=== PATIENT | female | born 1940 | race Caucasian/White ===

== ENCOUNTER 2017-02-15 12:28 | Emergency (ER) | payer OTHER, MEDICARE ==
[~2017-02-15] VITALS: Ht 165.1 cm; Wt 79.4 kg
--- NOTE | 2017-02-15 13:03 | ED GI/GU/ABDOMINAL COMPLAINT ---
History of Present Illness General Chief Complaint: General Adult Stated Complaint: ABD PAIN /RASH ALL OVER BODY Source: patient, family Exam Limitations: no limitations Vital Signs & Intake/Output Vital Signs & Intake/Output Vital Signs Date Time Temp Pulse Resp B/P B/P Pulse O2 O2 Flow FiO2 Mean Ox Delivery Rate 02/15 1542 98.0 82 20 139/67 95 Room Air Room Air 02/15 1410 98.0 76 20 145/67 98 Room Air 02/15 1234 98.2 91 22 153/75 96 Room Air Room Air ED Intake and Output 02/16 0000 02/15 1200 Intake Total 1000 Output Total Balance 1000 Intake, IV 1000 Patient 175 lb Weight Weight Reported by Patient Measurement Method Allergies Coded Allergies: Penicillins (Intermediate, RASH 02/15/17) Reconcile Medications Prednisone 10 MG TABLET 1 TAB PO D RASH TAKE 4 TABS FOR 3 DAYS TAKE 3 TABS FOR 3 DAYS TAKE 2 TABS FOR 3 DAYS TAKE 1 TAB FOR 3 DAYS Triage Note: TRIAGE: 76 Y/O FEMALE PRESENTS C/O 7/10 LEFT SIDED RIB PAIN X DAYS. REPORTS PAIN WORSENING WITH BREATHING. ALSO C/O RASH OVER BODY X 3-4 DAYS. "I KEEP GLOBBING THE CORTIZONE 10 CREAM ON IT AND THEN IT JUST KEEPS MOVING TO SOMEWHERE ELSE ON MY BODY." HAS TAKEN PREDNISONE SINCE FRIDAY MORNING WHEN SHE WOKE UP AND HE RIGHT EYE WAS COMPLETELY SWOLLEN SHUT... * REQUESTING A NEW PCP REFERRAL - REPORTS HER PCP RETIRED YESTERDAY.. Triage Nurses Notes Reviewed? yes ? N Is pt currently ? No HPI: Ck is a 76-year-old female who arrived through triaged to room for evaluation of left lower quadrant abdominal pain that started 4 days ago. She reports she has no nausea, vomiting, diarrhea. She last ate this morning with no issues. Last bowel movement was this morning, normal, brown, soft with no blood. 2 days ago she started with a rash on her arms that is spreading. She denies any new medications, new detergents, new contacts to different agents. Pain in her left lower quadrant at this time is mild. She also has pain in her epigastric area that started previously to her left lower quadrant abdominal pain. (RC MOREAU APRN) Past History Travel History Traveled to [place] past 21 day No Medical History Any Pertinent Medical History? see below for history Neurological: NONE EENT: NONE Cardiovascular: hypertension, hyperlipidemia Respiratory: NONE Gastrointestinal: NONE Hepatic: NONE Renal: NONE Musculoskeletal: NONE Psychiatric: NONE Endocrine: NONE Blood Disorders: NONE Cancer(s): NONE DRAWER MAKER/Reproductive: NONE Surgical History Surgical History: cholecystectomy Psychosocial History What is your primary language Ethiopian Tobacco Use: Current Daily Use Daily Tobacco Use Amount/Type: => 5 Cigarettes daily ETOH Use: denies use Illicit Drug Use: denies illicit drug use Family History Hx Contributory? No (RC MOREAU APRN) Review of Systems Review of Systems Constitutional: Reports: no symptoms. EENTM: Reports: no symptoms. Respiratory: Reports: no symptoms. Cardiovascular: Reports: no symptoms. GI: Reports: abdominal pain. Genitourinary: Reports: no symptoms. Musculoskeletal: Reports: no symptoms. Skin: Reports: rash. Neurological/Psychological: Reports: no symptoms. Hematologic/Endocrine: Reports: no symptoms. Immunologic/Allergic: Reports: no symptoms. All Other Systems: Reviewed and Negative (RC MOREAU APRN) Physical Exam Physical Exam General Appearance: well developed/nourished, no apparent distress, alert, awake , comfortable Head: atraumatic, normal appearance Eyes: Bilateral: normal appearance, PERRL, EOMI. Ears, Nose, Throat, Mouth: hearing grossly normal, moist mucous membrane Neck: normal inspection, supple, full range of motion, normal alignment Respiratory: normal breath sounds, chest non-tender, no respiratory distress Cardiovascular: regular rate/rhythm Peripheral Pulses: 2+ radial (R), 2+ radial (L) Gastrointestinal: normal bowel sounds (EPIGASTRIC OVER INCISION), soft, tenderness (LLQ), hernia (INCISIONAL) Back: normal inspection, normal range of motion Extremities: normal range of motion Neurologic/Psych: no motor/sensory deficits, awake, alert, oriented x 3, normal gait, normal mood/affect Skin: intact (BILATERAL ARMS ONLY), normal color, warm/dry, rash Core Measures ACS in differential dx? No Severe Sepsis Present: No Septic Shock Present: No (RC MOREAU APRN) Progress Differential Diagnosis: diverticulitis, hernia, UTI/pyelo, CONTACT DERMATITIS, NONSPECIFIC RASH Plan of Care: Orders Procedure Date/time Status URINALYSIS 02/15 1312 Complete Saline Lock 02/15 1305 Active LIPASE 02/15 1305 Complete COMPREHENSIVE METABOLIC PANEL 02/15 1305 Complete CBC WITHOUT DIFFERENTIAL 02/15 1305 Complete AMYLASE 02/15 130 Complete Laboratory Tests 02/15/17 1317: Urine Color YEL, Urine Clarity CLEAR, Urine pH 7.5, Ur Specific [place] 1.015, Urine Protein NEG, Urine Ketones NEG, Urine Nitrite NEG, Urine Bilirubin NEG, Urine Urobilinogen 0.2, Ur Leukocyte Esterase NEG, Ur Microscopic EXAM NOT REQUIRED, Urine Hemoglobin NEG, Urine Glucose NEG 02/15/17 1310: Anion Gap 12, Estimated GFR > 60, BUN/Creatinine Ratio 26.7 H, Glucose 125 H, Calcium 10.0, Total Bilirubin 1.0, AST 18, ALT 20, Alkaline Phosphatase 71, Total Protein 6.7, Albumin 3.6, Globulin 3.1, Albumin/Globulin Ratio 1.2, Amylase 58, Lipase 75, CBC w Diff NO MAN DIFF REQ, RBC 4.85, MCV 90.9, MCH 30.6, RDW 13.1, MPV 9.3, Gran % 63.8, Lymphocytes % 26.2, Monocytes % 7.0, Eosinophils % 2.6, Basophils % 0.4, Absolute Granulocytes 9.7 H, Absolute Lymphocytes 4.0 H, Absolute Monocytes 1.1 H, Absolute Eosinophils 0.4, Absolute Basophils 0.1, PUBS MCHC 33.6 Diagnostic Imaging: Viewed by Me: CT Scan. Discussed w/RAD: CT Scan. Initial ED EKG: none Comments: PATIENT: CK ESPINAL PRESENT AGE: 76 PATIENT ACCOUNT NO: [id number] : 39 LOCATION: [facility] ORDERING PHYSICIAN: RC MOREAU APRN SERVICE DATE: 02/15/17 EXAM TYPE: CAT - CT ABD & PELVIS W IV CONTRAST EXAMINATION: CT ABDOMEN AND PELVIS WITH CONTRAST CLINICAL INFORMATION: Diverticulitis. Abdominal pain. COMPARISON: None TECHNIQUE: Multidetector volumetric imaging was performed of the abdomen and pelvis before and after the IV administration of 95 mL of Optiray 320 intravenous contrast. Sagittal and coronal reformatted images were obtained on the technologist's workstation. DLP: 453 mGy-cm FINDINGS: LUNG BASES: There is minimal bilateral posterior pleural thickening and bilateral lower lobe atelectasis and/or scarring. The heart size is normal. LIVER, GALLBLADDER, AND BILIARY TREE: The liver is enlarged measuring 17 cm in length. There is diffuse attenuation of liver from focal fatty infiltration. No focal mass or intrahepatic ductal dilatation seen. The gallbladder is not visualized. PANCREAS: Unremarkable. SPLEEN: There is decreased perfusion of anterior inferior spleen probably flow-related previous infarction. Rest of the spleen is unremarkable. ADRENAL GLANDS: Unremarkable. KIDNEYS AND URETERS: The kidneys are normal in size, shape, and attenuation. No hydronephrosis, hydroureter, or calculi seen. No perinephric stranding. There are several cortical-based bilateral renal cyst, the largest measuring 2.7 cm in upper pole right kidney. There is mild bilateral perinephric stranding suggestive of reactive airway disease. BLADDER: Unremarkable. GASTROINTESTINAL TRACT: There is scattered stool in the right colon without distention. Rest of the colon and the small-bowel loops are normal caliber. ABDOMINAL WALL: No significant hernia is appreciated. LYMPH NODES: Normal. VASCULAR: Unremarkable. PELVIC VISCERA: There is a large left pelvic cyst seen. It measures 5.5 x 5.10 x 5.7 cm in length. There is additional cyst or solid mass seen. There is no hydronephrosis. There are calcified densities in the uterus most likely fibroids. OSSEOUS STRUCTURES: No lytic or sclerotic process seen. IMPRESSION: No acute intra-abdominal process seen. Hepatomegaly with diffuse hepatic steatosis. Decreased perfusion of anterior inferior spleen probably related to infarction or flow phenomena. Bilateral nonenhancing renal cysts. Noted in the calculi or hydronephrosis. Large left ovarian cyst which is abnormal for patient's age. Bilateral perinephric stranding. 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 DICTATED BY: ROCIO YAP MD DATE/TIME DICTATED:02/15/171409 VEHICLE SERVICE AGENT:HUY DATE/TIME TRANSCRIBED:02/15/171409 CONFIDENTIAL, DO NOT COPY WITHOUT APPROPRIATE AUTHORIZATION. <Electronically signed in Other Vendor System> SIGNED BY: ROCIO YAP MD 02/15/17 [id number] explained CAT scan results to patient. She will follow-up with TEACHING SUPERVISOR and her primary care provider. New providers will be given since her primary care provider retired recently. He has not seen an TEACHING SUPERVISOR in quite some time. We will give her prednisone and Benadryl to take for rash. She is able to ambulate to the bathroom with no assist, no pain. Dr. Dias in 2 re-eval patient (RC MOREAU APRN) Departure Departure Time of Disposition: 1537 Disposition: HOME OR SELF CARE Condition: Stable Clinical Impression Primary Impression: Left ovarian cyst Secondary Impressions: Hypokalemia, Rash and nonspecific skin eruption Referrals: SRI REYNOSO,KESHA HAYES DO,TERESA Additional Instructions: Please eat a banana on a daily basis to replace your potassium that you have lost. Follow up with a new primary care provider, Kesha Torres DO in [place]. Please take prednisone taper as directed, Benadryl 25-50 mg 3 times a day as needed for itching. Please follow up with Teresa Hayes DO, TEACHING SUPERVISOR in regards to ovarian cyst that was found on ultrasound. rETURN to the emergency department for any worsening or concerning symptoms. Departure Forms: Customer Survey General Discharge Information Prescriptions: Current Visit Scripts Prednisone 1 TAB PO D #30 TAB TAKE 4 TABS FOR 3 DAYS TAKE 3 TABS FOR 3 DAYS TAKE 2 TABS FOR 3 DAYS TAKE 1 TAB FOR 3 DAYS (RC MOREAU APRN) PA/VP STRATEGY Co-Sign Statement Statement: ED Attending supervision documentation- [x] I saw and evaluated the patient. I have also reviewed all the pertinent lab results and diagnostic results. I agree with the findings and the plan of care as documented in the PA's/VP STRATEGY's documentation. [] I have reviewed the ED Record and agree with the PA's/VP STRATEGY's documentation. [] Additions or exceptions (if any) to the PAs/VP STRATEGY's note and plan are summarized below: [] (TJ KEY,CHATO Pearson)
[2017-02-15 13:51] LABS: ABSOLUTE BASOPHIL COUNT 0.1 /CUMM (0.0-0.2); ABSOLUTE EOSINOPHIL COUNT 0.4 /CUMM (0.0-0.7); ABSOLUTE GRANULOCYTE CT 9.7 /CUMM (1.4-6.5); ABSOLUTE MONOCYTE COUNT 1.1 /CUMM (0.10-0.60); BASOPHIL % 0.4 % (0.0-2.0); EOSINOPHIL % 2.6 % (0-5); GRANULOCYTE % 63.8 % (42.2-75.2); MEAN CORPUSCULAR HGB 30.6 PG (27.0-31.0); MEAN CORPUSCULAR HGB CONC 33.6 G/DL (33.0-37.0); MEAN CORPUSCULAR VOLUME 90.9 FL (81.0-99.0); MEAN PLATELET VOLUME 9.3 FL (7.4-10.4); PLATELET COUNT 325 /CUMM (130-400); RBC DISTRIBUTION WIDTH 13.1 % (11.5-14.5); RED BLOOD CELL CT 4.85 /CUMM (4.20-5.40); WHITE BLOOD CELL COUNT 15.2 /CUMM (4.8-10.8)
--- NOTE | 2017-02-15 15:04 | CT SCAN REPORT ---
EXAMINATION: CT ABDOMEN AND PELVIS WITH CONTRAST CLINICAL INFORMATION: Diverticulitis. Abdominal pain. COMPARISON: None TECHNIQUE: Multidetector volumetric imaging was performed of the abdomen and pelvis before and after the IV administration of 95 mL of Optiray 320 intravenous contrast. Sagittal and coronal reformatted images were obtained on the technologist's workstation. DLP: 453 mGy-cm FINDINGS: LUNG BASES: There is minimal bilateral posterior pleural thickening and bilateral lower lobe atelectasis and/or scarring. The heart size is normal. LIVER, GALLBLADDER, AND BILIARY TREE: The liver is enlarged measuring 17 cm in length. There is diffuse attenuation of liver from focal fatty infiltration. No focal mass or intrahepatic ductal dilatation seen. The gallbladder is not visualized. PANCREAS: Unremarkable. SPLEEN: There is decreased perfusion of anterior inferior spleen probably flow-related previous infarction. Rest of the spleen is unremarkable. ADRENAL GLANDS: Unremarkable. KIDNEYS AND URETERS: The kidneys are normal in size, shape, and attenuation. No hydronephrosis, hydroureter, or calculi seen. No perinephric stranding. There are several cortical-based bilateral renal cyst, the largest measuring 2.7 cm in upper pole right kidney. There is mild bilateral perinephric stranding suggestive of reactive airway disease. BLADDER: Unremarkable. GASTROINTESTINAL TRACT: There is scattered stool in the right colon without distention. Rest of the colon and the small-bowel loops are normal caliber. ABDOMINAL WALL: No significant hernia is appreciated. LYMPH NODES: Normal. VASCULAR: Unremarkable. PELVIC VISCERA: There is a large left pelvic cyst seen. It measures 5.5 x 5.10 x 5.7 cm in length. There is additional cyst or solid mass seen. There is no hydronephrosis. There are calcified densities in the uterus most likely fibroids. OSSEOUS STRUCTURES: No lytic or sclerotic process seen. IMPRESSION: No acute intra-abdominal process seen. Hepatomegaly with diffuse hepatic steatosis. Decreased perfusion of anterior inferior spleen probably related to infarction or flow phenomena. Bilateral nonenhancing renal cysts. Noted in the calculi or hydronephrosis. Large left ovarian cyst which is abnormal for patient's age. Bilateral perinephric stranding. 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
[2017-02-15 15:42] VITALS: BP 139/67
[2017-02-15] MEDS ORDERED: PREDNISONE10 M2 PO (15:42)
== END 2017-02-15 15:47 ==
LOC: ERH 12:28
PROVIDERS: Nurse Practitioner Family
DX: N83.202 Unspecified ovarian cyst, left side (principal); E87.6 Hypokalemia; R21 Rash and other nonspecific skin eruption
CPT/HCPCS: 74177; 81003; 96374; J1200